=== PATIENT | female | born 1960 ===

== ENCOUNTER 2023-08-22 06:20 | Day surgery (SDC) | payer BC ==
[2023-08-20 14:18] LABS: Potassium 3.9 mEq/L (3.5-5.1)
[2023-08-22] MEDS ORDERED: Ringers Lactate 1,000 ML IV ONE (06:47)
[2023-08-22] MEDS ORDERED: LIDOCAINE 1% MPF 5 ML VIAL ONE (07:29)
[2023-08-22] MEDS ORDERED: propofoL 200 MG/20 ML VIAL IV ONE ×2 (07:29)
[2023-08-22 09:22] VITALS: BP 113/73; TEMP 97.1; O2SAT 99
--- NOTE | 2023-08-23 14:20 | EKG ---
Test Date: 2023-08-20 Test Time: 14:38:31 Equipment Specialist: [place] MEASUREMENT RESULTS: Intervals: Rate: 61 [place]: 150 QRSD: 82 QT: 416 QTc: 418 [place]: P: 76 [place]: 150 QRS: 46 T: 51 INTERPRETIVE STATEMENTS: Normal sinus rhythm Normal ECG No previous ECG available for comparison Electronically Signed On 08-23-23 14:10:22 BEHAVIORAL HEALTH ASSISTANT by Dionisio Gilliland
== END 2023-08-22 08:40 | disposition home or self-care (01) ==
LOC: OR 06:20
PROVIDERS: ATTEND Surgery
PROC: 0DBL8ZX Excision of Transverse Colon, Via Natural or Artificial Opening Endoscopic, Diagnostic (ICD-10-PCS; 2023-08-22)
PROC: 0DBN8ZX Excision of Sigmoid Colon, Via Natural or Artificial Opening Endoscopic, Diagnostic (ICD-10-PCS; principal; 2023-08-22 07:30)
DX: Z12.11 Encounter for screening for malignant neoplasm of colon (principal); D12.5 Benign neoplasm of sigmoid colon
CPT/HCPCS: 93005; 80048; 36415; 88305; 45380; J2704 ×2; J2001; J7120